=== PATIENT | female | born 1940 | race Caucasian/White ===

== ENCOUNTER 2020-07-16 | Emergency (ER) | payer MEDICARE ==
[2020-07-16 20:26] LABS: HEMATOCRIT 41.5 % (37.0-47.0); HEMOGLOBIN 12.8 g/dl (12.0-16.0); IMMATURE GRANULOCYTES 0.3 % (0.0-5.0); MEAN CELL VOLUME 89.8 fL CALC (80.0-100.0); MEAN CORPUSCULAR HGB 27.7 pG CALC (26.0-32.0); MEAN CORPUSCULAR HGB CONC 30.8 g/dL CAL (32.0-36.0); NEUT# 2.27 thou/uL (2.00-7.15); RED BLOOD COUNT 4.62 mill/uL (4.20-5.60)
[2020-07-16 20:30] LABS: URINE BILIRUBIN - DIPSTICK NEGATIVE (NEGATIVE); URINE BLOOD DIPSTICK NEGATIVE (NEGATIVE); URINE COLOR YELLOW; URINE GLUCOSE - DIPSTICK NEGATIVE (NEGATIVE); URINE KETONE TRACE mg/dL (NEGATIVE); URINE PROTEIN - DIPSTICK NEGATIVE (NEG-TRACE); URINE SPECIFIC GRAVITY >=1.030; URINE UROBILINOGEN - DIPSTICK 0.2 E.U./dL (0.2)
[2020-07-16 20:32] LABS: URINE LEUK ESTERASE SMALL (NEGATIVE); URINE NITRITE - DIPSTICK POSITIVE (Negative)
[2020-07-16 20:40] LABS: ALBUMIN 4.8 g/dL (3.2-5.0); BILIRUBIN, TOTAL 0.7 mg/dL (0.0-1.4); CREATININE 1.1 mg/dL (0.5-1.0); POTASSIUM 4.3 mmol/l (3.5-5.1); TOTAL PROTEIN 7.5 g/dL (6.3-8.2)
[2020-07-16 20:42] LABS: URINE BACTERIA MODERATE hpf; URINE SQUAMOUS EPITHELIAL CELL FEW EPI/hpf (0-FEW)
[2020-07-16] MEDS ORDERED: Levaquin PO (23:20)
[2020-07-17] MEDS ORDERED: Levaquin PO (00:23)
== END 2020-07-17 00:23 | disposition home or self-care (01) ==
PROVIDERS: Emergency Medicine
DX: U07.1 COVID-19 (principal); R52 Pain, unspecified; N39.0 Urinary tract infection, site not specified; B96.20 Unspecified Escherichia coli [E. coli] as the cause of diseases classified elsewhere
CPT/HCPCS: J1956; Q9967

== ENCOUNTER 2021-02-20 08:20 | Emergency (ER) | payer MEDICARE ==
[~2021-02-20] VITALS: Ht 157.5 cm; Wt 100.0 kg
[~2021-02-20 08:20] MED LIST: Levaquin PO
[2021-02-20 10:30] VITALS: BP 179/74
== END 2021-02-20 10:30 | disposition home or self-care (01) ==
LOC: ED 08:20
DX: G50.0 Trigeminal neuralgia (principal); M26.602 Left temporomandibular joint disorder, unspecified

== ENCOUNTER 2021-05-01 11:27 | Emergency (ER) | payer MEDICARE ==
[~2021-05-01] VITALS: Ht 157.5 cm; Wt 90.9 kg
[2021-05-01] MEDS ORDERED: BENICAR20 MG PO (12:34)
[2021-05-01 13:08] LABS: IMMATURE GRANULOCYTES 0.3 % (0.0-5.0); MEAN CELL VOLUME 93.3 fL CALC (80.0-100.0); MEAN CORPUSCULAR HGB 28.2 pG CALC (26.0-32.0); MEAN CORPUSCULAR HGB CONC 30.3 g/dL CAL (32.0-36.0); NEUT# 2.47 thou/uL (2.00-7.15); RED BLOOD COUNT 3.72 mill/uL (4.20-5.60); RED CELL DISTRI WIDTH 13.1 % (11.5-15.5)
[2021-05-01 13:11] LABS: HEMATOCRIT 34.7 % (37.0-47.0); HEMOGLOBIN 10.5 g/dl (12.0-16.0)
[2021-05-01 13:21] LABS: ALKALINE PHOSPHATASE 69 u/l (38-126); ANION GAP 10 (6-22 (CALC)); BILIRUBIN, TOTAL 0.7 mg/dL (0.0-1.4); BUN 11 mg/dL (8-23); BUN/CREATININE RATIO 16 (12-20 (CALC)); CARBON DIOXIDE 30 mmol/l (22-30); CHLORIDE 105 mmol/l (95-108); CREATININE 0.7 mg/dL (0.5-1.0); GFR > 60 ML/MIN (>=60 (CALC)); GFR FOR AFR.AMER. > 60 ML/MIN (>=60 (CALC)); LIPASE 43 u/l (23-300); POTASSIUM 4.6 mmol/l (3.5-5.1); SGOT/AST 18 u/l (9-36); SODIUM 140 mmol/l (137-146); TOTAL PROTEIN 6.9 g/dL (6.3-8.2)
[2021-05-01 13:27] LABS: ACT PARTIAL THROMBO TIME 23.2 SECONDS (20.0-32.5); PROTHROMBIN TIME 10.3 SECONDS (9.0-12.5)
[2021-05-01 17:15] VITALS: BP 202/90
== END 2021-05-01 17:15 | disposition left against medical advice (07) ==
LOC: ED 11:27
DX: R07.9 Chest pain, unspecified (principal); M54.2 Cervicalgia; I10 Essential (primary) hypertension; Z91.19 Patient's noncompliance with other medical treatment and regimen; Z20.822 Contact with and (suspected) exposure to COVID-19
CPT/HCPCS: Q9967

== ENCOUNTER 2023-05-16 07:48 | Emergency (ER) | payer MEDICARE ==
[2023-05-16] VITALS (11 sets, daily range): BP systolic 148–177; BP diastolic 76–96
[~2023-05-16] VITALS: Ht 157.5 cm; Wt 91.0 kg
[~2023-05-16 07:48] MED LIST changes: +BENICAR20 MG PO
[2023-05-16] MEDS ORDERED: LASIX 40 MG TAB40 MG PO (09:12)
[2023-05-16] MEDS ORDERED: ATORVASTATIN CA40 MG PO (09:15)
[2023-05-16] MEDS ORDERED: VITAMIN D325 MCG PO (09:15)
[2023-05-16] MEDS ORDERED: OS-CAL 500500 M1 PO (09:15)
[2023-05-16] MEDS ORDERED: PEPCID40 MG PO (09:16)
[2023-05-16] MEDS ORDERED: B121000 MC1 PO (09:16)
[2023-05-16 09:21] LABS: BASO% 0.8 % (0-3); EOS% 0.4 % (0-8); HEMATOCRIT 33.9 % (37.0-47.0); HEMOGLOBIN 10.5 g/dl (12.0-16.0); IMMATURE GRANULOCYTES 0.4 % (0.0-5.0); LYMPH% 11.4 % (15-41); MEAN CELL VOLUME 86.3 fL CALC (80.0-100.0); MEAN CORPUSCULAR HGB 26.7 pG CALC (26.0-32.0); NEUT# 1.76 thou/uL (2.00-7.15); RED BLOOD COUNT 3.93 mill/uL (4.20-5.60); RED CELL DISTRI WIDTH 15.5 % (11.5-15.5)
[2023-05-16 09:45] LABS: ALBUMIN 4.2 g/dL (3.2-5.0); ALKALINE PHOSPHATASE 105 u/l (38-126); ANION GAP 10 (6-22 (CALC)); BILIRUBIN, TOTAL 0.7 mg/dL (0.02-1.3); BUN 26 mg/dL (8-23); BUN/CREATININE RATIO 25 (12-20 (CALC)); CARBON DIOXIDE 30 mmol/l (22-30); CHLORIDE 98 mmol/l (95-108); GFR FOR AFR.AMER. > 60 ML/MIN (>=60 (CALC)); GFR OTHER RACES 53 ML/MIN (>=60 (CALC)); SODIUM 134 mmol/l (137-146); TOTAL PROTEIN 6.8 g/dL (6.3-8.2)
[2023-05-16 09:51] LABS: SGOT/AST 34 u/l (9-36)
[2023-05-16] MEDS ORDERED: AMOX/K CLAV875 M1 PO (12:05)
[2023-05-16] MEDS ORDERED: ZPAK PO (12:05)
[2023-05-16] MEDS ORDERED: TAM75CAP PO (12:05)
[2023-05-22 10:15] VITALS: BP 147/76
== END 2023-05-16 12:49 | disposition home or self-care (01) ==
LOC: ED 07:48
PROVIDERS: Family Medicine
DX: J11.00 Influenza due to unidentified influenza virus with unspecified type of pneumonia (principal); I10 Essential (primary) hypertension; E78.5 Hyperlipidemia, unspecified; I48.91 Unspecified atrial fibrillation; Z20.822 Contact with and (suspected) exposure to COVID-19
CPT/HCPCS: Q9967